=== PATIENT | male | born 1985 | race African-American/Black ===

== ENCOUNTER 2025-08-11 10:13 | Emergency (ER) | payer MEDICAID ==
[~2025-08-11] VITALS: Ht 185.4 cm; Wt 86.4 kg
[~2025-08-11 10:13] MED LIST: DIVA-112 PO; LITH300C3 PO; OLAN10TA74 PO
[2025-08-11 10:20] VITALS: BP 128/88; PULSE 93; RESP 18; TEMP 97.9; O2SAT 99
[2025-08-11 11:14] LABS: CALCIUM, TOTAL 9.1 mg/dL (8.8-10.5); CREATININE 1.10 mg/dL (0.60-1.30); GLOMERULAR FILTR. RATE CALC > 60 mL/min (>60); GLUCOSE,RANDOM 91 mg/dL (70-110); SODIUM SERUM 135 mmol/L (136-145); UREA NITROGEN, BLOOD 17 mg/dL (7-18)
[2025-08-11 11:17] LABS: PLATELET COUNT (AUTO) 289 K/uL (150-450); RED BLOOD CELL COUNT(AUTO) 4.47 MIL/uL (4.50-5.90); RED CELL DISTRIBUTION WIDTH 14.2 % (11.5-14.5); WHITE BLOOD COUNT (AUTO) 6.5 K/uL (4.5-11.0)
[2025-08-11 11:38] LABS: COVID AG,FIA SOURCE NASAL SWAB
[2025-08-11 12:15] LABS: SARS-COV2 (COVID) ANTIGEN,FIA Negative (Negative)
== END 2025-08-11 13:55 | disposition home or self-care (01) ==
LOC: EMS 10:23
DX: F25.1 Schizoaffective disorder, depressive type (principal); R45.851 Suicidal ideations; F31.9 Bipolar disorder, unspecified; F15.90 Other stimulant use, unspecified, uncomplicated; Z79.899 Other long term (current) drug therapy; Z20.822 Contact with and (suspected) exposure to COVID-19
CPT/HCPCS: 99284; 87426; 80048; 85025; 36415; G0480; 99285